=== PATIENT | male | born 1955 | race Hispanic/Latino ===

== ENCOUNTER → 2017-07-26 | Outpatient (CLI) | payer MEDICARE ==
[~2017-07-26] MED LIST: ALEN70TA47 PO; CYAN10007 IJ; DIPH50CA4 PO; ERGO500014 PO; FOLI1TAB15 PO; HYDR-4060 PO; HYDR200T4 PO; LISI-613 PO; METH2.5T6 PO; PRED5TAB PO; ROSU40TA28 PO; SIMV40TA59 PO; SULF500T8 PO; TOFA11TA PO; TOFA5TAB PO; vitamin b12 IM
== END | disposition home or self-care (01) ==
LOC: OIH 16:30
PROVIDERS: ATTEND Internal Medicine
DX: I10 Essential (primary) hypertension (principal)
CPT/HCPCS: 71046

== ENCOUNTER 2017-08-03 10:10 | Inpatient (IN) | payer MEDICARE ==
[~2017-08-03] VITALS: Ht 165.1 cm; Wt 105.4 kg
[~2017-08-03 10:10] MED LIST changes: -PRED5TAB PO
[2017-08-03] MEDS ORDERED: LIDOCAINE HCL-MPF 1% 2ML VIAL IJ PRN (10:45)
[2017-08-03] MEDS ORDERED: POTASSIUM CHLORIDE 20 MEQ ERTAB PO PRN (10:45)
[2017-08-03] MEDS ORDERED: ONDANSETRON HCL 4 MG/2 ML VIAL IVP PRN (10:45)
[2017-08-03] MEDS ORDERED: DEXTROSE 50%-WATER 50 ML DISP.SYRIN IV PRN (10:45)
[2017-08-03] MEDS ORDERED: SODIUM CHLORIDE 0.9% 10 ML VIAL IVP SCH (10:45)
[2017-08-03] MEDS ORDERED: GLUCAGON 1MG KIT 1 MG ML IM PRN (10:45)
[2017-08-03] MEDS ORDERED: POTASSIUM CHLORIDE 20MEQ/100ML 100 ML IV PRN (10:45)
[2017-08-03] MEDS ORDERED: IPRATROPIUM/ALBUTEROL SULFATE 3 ML SOLUTION IH PRN (10:45)
[2017-08-03] MEDS ORDERED: ACETAMINOPHEN 325 MG TAB PO PRN (10:45)
[2017-08-03] MEDS ORDERED: LACTULOSE 20 GM/30 ML UDCUP PO PRN (10:45)
[2017-08-03] MEDS ORDERED: MAG HYDROX/AL HYDROX/SIMETH ES 30 ML SUSP UDCUP PO PRN (10:45)
[2017-08-03] MEDS ORDERED: DIPHENHYDRAMINE HCL 25 MG CAPSULE PO PRN (10:45)
[2017-08-03] MEDS ORDERED: POTASSIUM CHLORIDE 10% ELIXIR 20 MEQ/15 ML UDCUP PO PRN (10:45)
[2017-08-03] MEDS ORDERED: CLONIDINE HCL 0.1 MG TABLET PO PRN (10:45)
[2017-08-03 10:50] LABS: HEMATOCRIT 40.6 % (42-54); MEAN CORPUSCULAR HEMOGLOBIN 31.3 pg (27.0-33.0); MEAN CORPUSCULAR HGB CONC 33.3 g/dL (32.0-36.0); MEAN CORPUSCULAR VOLUME 94.1 fL (79-99); NUCLEATED RED BLOOD CELLS 0.1 % (0.0-0.19); PLATELET COUNT (AUTO) 226 K/uL (130-400); RED BLOOD CELL COUNT(AUTO) 4.32 MIL/uL (4.50-6.20); RED CELL DISTRIBUTION WIDTH 16.2 % (11.0-15.5); WHITE BLOOD COUNT (AUTO) 11.5 K/uL (4.8-10.8)
[2017-08-03 11:00] VITALS: BP 102/60
[2017-08-03 11:10] LABS: ALBUMIN 3.4 g/dL (3.5-5.0); BILIRUBIN,TOTAL 0.3 mg/dL (0.2-1.0); CREATININE 0.8 mg/dL (0.5-1.5); POTASSIUM 4.2 mmol/L (3.5-5.1); TOTAL PROTEIN, SERUM 6.5 g/dL (6.0-8.3)
[2017-08-03] MEDS: IPRATROPIUM/ALBUTEROL SULFATE 3 ML SOLUTION IH SCH ×3 (11:11→23:35)
[2017-08-03] MEDS: INSULIN R PO SSI SQ SCH ×3 (11:30→20:47)
[2017-08-03 12:08] LABS: ERYTHROCYTE SEDIMENTATION RATE 5 MM/HR (0-15)
[2017-08-03] MEDS: AZITHROMYCIN 500MG+NS 250ML 250 ML IV SCH (12:09)
[2017-08-03] MEDS: CEFTRIAXONE SODIUM 1 GM IVP SCH (12:09)
[2017-08-03] MEDS: METHYLPREDNISOLONE SOD SUCC 125MG/2ML VIAL IVP SCH ×2 (12:09→17:47)
[2017-08-03 16:19] VITALS: BP 126/70
[2017-08-03 19:37] VITALS: BP 119/65
[2017-08-03] MEDS: FAMOTIDINE 20MG TAB 20 MG TAB PO SCH (20:43)
[2017-08-03 23:18] VITALS: BP 126/64
[2017-08-03 23:33] VITALS: BP 152/69
[2017-08-04] MEDS: ZOLPIDEM TARTRATE 5 MG TAB PO PRN ×2 (00:10→20:53)
[2017-08-04] MEDS: METHYLPREDNISOLONE SOD SUCC 125MG/2ML VIAL IVP SCH ×4 (00:10→17:45)
[2017-08-04 03:37] VITALS: BP 123/70
[2017-08-04 04:17] LABS: HEMATOCRIT 38.7 % (42-54); MEAN CORPUSCULAR HEMOGLOBIN 32.1 pg (27.0-33.0); MEAN CORPUSCULAR VOLUME 94.3 fL (79-99); PLATELET COUNT (AUTO) 243 K/uL (130-400); RED CELL DISTRIBUTION WIDTH 16.1 % (11.0-15.5); WHITE BLOOD COUNT (AUTO) 13.6 K/uL (4.8-10.8)
[2017-08-04 04:40] LABS: ALBUMIN 3.3 g/dL (3.5-5.0); BILIRUBIN,TOTAL 0.2 mg/dL (0.2-1.0); CREATININE 1.1 mg/dL (0.5-1.5); POTASSIUM 4.4 mmol/L (3.5-5.1); TOTAL PROTEIN, SERUM 6.2 g/dL (6.0-8.3)
[2017-08-04] MEDS: IPRATROPIUM/ALBUTEROL SULFATE 3 ML SOLUTION IH SCH ×4 (06:13→23:31)
[2017-08-04] MEDS: INSULIN R PO SSI SQ SCH ×4 (06:35→20:58)
[2017-08-04 07:00] VITALS: BP 115/53
[2017-08-04] MEDS: ENOXAPARIN SODIUM 40 MG/0.4 ML SYRINGE SQ SCH (08:16)
[2017-08-04] MEDS: FAMOTIDINE 20MG TAB 20 MG TAB PO SCH ×2 (08:16→20:53)
[2017-08-04] MEDS: GUAIFENESIN-DM 200/20 MG 10 ML PO PRN ×2 (08:16→17:50)
[2017-08-04] MEDS: CEFTRIAXONE SODIUM 1 GM IVP SCH (08:16)
[2017-08-04] MEDS: AZITHROMYCIN 500MG+NS 250ML 250 ML IV SCH (08:16)
[2017-08-04 11:00] VITALS: BP 116/69
[2017-08-04] MEDS ORDERED: PRED5TAB PO (12:43)
[2017-08-04 16:00] VITALS: BP 133/74
[2017-08-04 19:11] VITALS: BP 121/63
[2017-08-04 23:27] VITALS: BP 133/81
[2017-08-05 03:20] VITALS: BP 113/57
[2017-08-05] MEDS: INSULIN R PO SSI SQ SCH ×4 (06:35→21:05)
[2017-08-05] MEDS: METHYLPREDNISOLONE SOD SUCC 125MG/2ML VIAL IVP SCH ×2 (06:35)
[2017-08-05] MEDS: IPRATROPIUM/ALBUTEROL SULFATE 3 ML SOLUTION IH SCH ×3 (06:50→18:57)
[2017-08-05 07:51] VITALS: BP 125/71
[2017-08-05] MEDS: FAMOTIDINE 20MG TAB 20 MG TAB PO SCH ×2 (08:32→21:03)
[2017-08-05] MEDS: CEFTRIAXONE SODIUM 1 GM IVP SCH (08:33)
[2017-08-05] MEDS: ENOXAPARIN SODIUM 40 MG/0.4 ML SYRINGE SQ SCH (08:33)
[2017-08-05] MEDS: AZITHROMYCIN 500MG+NS 250ML 250 ML IV SCH (08:34)
[2017-08-05 11:49] VITALS: BP 128/70
[2017-08-05 16:00] VITALS: BP 142/73
[2017-08-05] MEDS ORDERED: METHYLPREDNISOLONE SOD SUCC 125MG/2ML VIAL IVP SCH (18:00)
[2017-08-05 19:11] VITALS: BP 139/79
[2017-08-05] MEDS: ZOLPIDEM TARTRATE 5 MG TAB PO PRN (21:03)
[2017-08-05 23:24] VITALS: BP 119/78
[2017-08-06] MEDS: IPRATROPIUM/ALBUTEROL SULFATE 3 ML SOLUTION IH SCH ×5 (01:21→23:33)
[2017-08-06 03:28] VITALS: BP 109/61
[2017-08-06 06:39] VITALS: BP 108/70
[2017-08-06] MEDS: INSULIN R PO SSI SQ SCH ×4 (08:20→23:40)
[2017-08-06] MEDS: AZITHROMYCIN 500MG+NS 250ML 250 ML IV SCH (08:26)
[2017-08-06] MEDS: FAMOTIDINE 20MG TAB 20 MG TAB PO SCH ×2 (08:27→23:42)
[2017-08-06] MEDS: CEFTRIAXONE SODIUM 1 GM IVP SCH (08:27)
[2017-08-06] MEDS: METHYLPREDNISOLONE SOD SUCC 40MG/ML 1ML IVP SCH ×2 (08:28→23:42)
[2017-08-06] MEDS: ENOXAPARIN SODIUM 40 MG/0.4 ML SYRINGE SQ SCH (08:29)
[2017-08-06 12:00] VITALS: BP 120/71
[2017-08-06 16:00] VITALS: BP 130/69
[2017-08-06 20:00] VITALS: BP 143/71
[2017-08-06] MEDS: ZOLPIDEM TARTRATE 5 MG TAB PO PRN (23:43)
[2017-08-07] VITALS: BP 131/80
[2017-08-07 04:00] VITALS: BP 128/70
[2017-08-07] MEDS: IPRATROPIUM/ALBUTEROL SULFATE 3 ML SOLUTION IH SCH (06:30)
[2017-08-07] MEDS: INSULIN R PO SSI SQ SCH (06:58)
[2017-08-07 07:47] VITALS: BP 141/83
[2017-08-07] MEDS: CEFTRIAXONE SODIUM 1 GM IVP SCH (10:11)
[2017-08-07] MEDS: FAMOTIDINE 20MG TAB 20 MG TAB PO SCH (10:11)
[2017-08-07] MEDS: AZITHROMYCIN 500MG+NS 250ML 250 ML IV SCH (10:12)
[2017-08-07] MEDS: METHYLPREDNISOLONE SOD SUCC 40MG/ML 1ML IVP SCH (10:12)
[2017-08-07] MEDS: ENOXAPARIN SODIUM 40 MG/0.4 ML SYRINGE SQ SCH (10:13)
== END 2017-08-07 11:09 | disposition home or self-care (01) | DRG 202 ==
LOC: EDH 10:10 → 3CH 10:11
PROVIDERS: ADMIT Internal Medicine; ATTEND Internal Medicine
DX: J20.9 Acute bronchitis, unspecified (principal); R65.11 Systemic inflammatory response syndrome (SIRS) of non-infectious origin with acute organ dysfunction; J45.41 Moderate persistent asthma with (acute) exacerbation; E44.1 Mild protein-calorie malnutrition; I10 Essential (primary) hypertension; M06.9 Rheumatoid arthritis, unspecified; Z68.38 Body mass index [BMI] 38.0-38.9, adult; M81.0 Age-related osteoporosis without current pathological fracture; M19.90 Unspecified osteoarthritis, unspecified site; G89.29 Other chronic pain; E78.5 Hyperlipidemia, unspecified; Z28.21 Immunization not carried out because of patient refusal
CPT/HCPCS: 36415; 71046; 80053; 82948; 85027; 85651; 93005; 94640; 94664; A4218; J0456; J0696; J1650; J1815; J2920; J2930

== ENCOUNTER → 2017-08-14 | Outpatient (CLI) | payer MEDICARE ==
[~2017-08-14] MED LIST changes: -ALEN70TA47 PO; +PRED5TAB PO; -SIMV40TA59 PO; -TOFA11TA PO; -vitamin b12 IM
== END ==
LOC: OIH 10:58
PROVIDERS: ATTEND Internal Medicine
DX: M54.16 Radiculopathy, lumbar region (principal); I73.9 Peripheral vascular disease, unspecified
CPT/HCPCS: 72100

== ENCOUNTER → 2017-09-18 | Outpatient (CLI) | payer MEDICARE | END | disposition home or self-care (01) | LOC: RAH 08:30 | PROVIDERS: ATTEND Internal Medicine | DX: M47.26 Other spondylosis with radiculopathy, lumbar region (principal); M48.061 Spinal stenosis, lumbar region without neurogenic claudication; I12.9 Hypertensive chronic kidney disease with stage 1 through stage 4 chronic kidney disease, or unspecified chronic kidney disease; N18.9 Chronic kidney disease, unspecified; J44.9 Chronic obstructive pulmonary disease, unspecified; M81.0 Age-related osteoporosis without current pathological fracture; E78.5 Hyperlipidemia, unspecified | CPT/HCPCS: 72148 ==

== ENCOUNTER 2018-03-26 19:43 | Emergency (ER) | payer MEDICARE ==
[~2018-03-26 19:43] MED LIST changes: +ROSU40TA20 PO; -ROSU40TA28 PO
[2018-03-26] MEDS ORDERED: SODIUM CHLORIDE 0.9% 500ML 500 ML IV ONE ×2 (20:34→22:08)
[2018-03-26 20:41] LABS: BASOPHILS % (AUTO) 0.4 % (0.0-5.0); EOSINOPHILS % (AUTO) 0.8 % (0.0-8.0); HEMATOCRIT 37.4 % (42-54); LYMPHOCYTES % (AUTO) 20.1 % (21.0-51.0); MEAN CORPUSCULAR HEMOGLOBIN 32.1 pg (27.0-33.0); MEAN CORPUSCULAR HGB CONC 32.9 g/dL (32.0-36.0); MEAN CORPUSCULAR VOLUME 97.5 fL (79-99); NEUTROPHILS % (AUTO) 69.7 % (40.0-77.0); PLATELET COUNT (AUTO) 215 K/uL (130-400); RED BLOOD CELL COUNT(AUTO) 3.83 MIL/uL (4.50-6.20); WHITE BLOOD COUNT (AUTO) 9.8 K/uL (4.8-10.8)
[2018-03-26 20:48] LABS: CREATININE 1.6 mg/dL (0.5-1.5); INR 0.97 (0.85-1.15); PARTIAL THROMBOPLASTIN TIME 25.4 SEC (26.3-35.5); POTASSIUM 3.8 mmol/L (3.5-5.1); PROTHROMBIN TIME 10.2 SEC (9.6-11.6)
[2018-03-26 20:52] LABS: ALBUMIN 3.7 g/dL (3.5-5.0); BILIRUBIN,TOTAL 0.2 mg/dL (0.2-1.0); TOTAL PROTEIN, SERUM 6.5 g/dL (6.0-8.3)
[2018-03-26 21:05] LABS: B-TYPE NATRIURETIC PEPTIDE 14 pg/mL (0-100)
[2018-03-26 22:25] LABS: APPEARANCE,URINE Cloudy (CLEAR); BILIRUBIN,URINE Small (NEGATIVE); COLOR,URINE Dark Yellow (YELLOW); GLUCOSE, URINE (UA) Negative (NEGATIVE); KETONES,URINE Trace mg/dL (NEGATIVE); LEUKOCYTE ESTERASE ,URINE Trace (NEGATIVE); NITRATE,URINE Negative (NEGATIVE); OCCULT BLOOD,URINE Negative (NEGATIVE); PROTEIN,URINE POS 1+ (NEGATIVE)
[2018-03-26 22:45] LABS: BACTERIA,URINE Few /HPF (None Seen); MUCUS,URINE Many LPF (None Seen); RBC,URINE None Seen /HPF (0-1); SQUAMOUS EPITHELIAL CELL,UR Many /HPF (0-2)
[2018-03-26 22:46] LABS: HYALINE CASTS, URINE 26-50 /LPF (0-1 /LPF)
== END 2018-03-26 22:47 | disposition home or self-care (01) ==
LOC: EDH 19:43
DX: E86.9 Volume depletion, unspecified (principal); T50.995A Adverse effect of other drugs, medicaments and biological substances, initial encounter; R42 Dizziness and giddiness; J44.9 Chronic obstructive pulmonary disease, unspecified; E78.5 Hyperlipidemia, unspecified; I10 Essential (primary) hypertension; M06.80 Other specified rheumatoid arthritis, unspecified site; Y92.098 Other place in other non-institutional residence as the place of occurrence of the external cause
CPT/HCPCS: 36415; 71045; 80053; 81001; 82550; 83605; 83690; 83880; 84484; 85025; 85610; 85730; 93005; 96360; 96361; 99285; J7040 ×2

== ENCOUNTER → 2018-04-17 | Outpatient (CLI) | payer MEDICARE | END | disposition home or self-care (01) | LOC: OIH 14:26 | PROVIDERS: ATTEND Internal Medicine | DX: R91.8 Other nonspecific abnormal finding of lung field (principal); M47.895 Other spondylosis, thoracolumbar region; J18.0 Bronchopneumonia, unspecified organism; Z90.49 Acquired absence of other specified parts of digestive tract | CPT/HCPCS: 71046 ==

== ENCOUNTER → 2018-06-24 | Outpatient (CLI) | payer MEDICARE | END | disposition home or self-care (01) | LOC: OIH 11:10 | PROVIDERS: ATTEND Internal Medicine | DX: J18.0 Bronchopneumonia, unspecified organism (principal) | CPT/HCPCS: 71046 ==

== ENCOUNTER → 2018-09-04 | Outpatient (CLI) | payer MEDICARE ==
[~2018-09-04] MED LIST changes: +ALBU8.5H8 IH; +ALEN70TA10 PO; -DIPH50CA4 PO; +LEVO500T2 PO; +PRED20TA3 PO; +TOFA11TA PO; -TOFA5TAB PO
== END | disposition home or self-care (01) ==
LOC: OIH 16:25
PROVIDERS: ATTEND Internal Medicine
DX: J45.41 Moderate persistent asthma with (acute) exacerbation (principal)
CPT/HCPCS: 71046

== ENCOUNTER → 2019-12-29 | Outpatient (CLI) | payer OTHER | END | disposition home or self-care (01) | LOC: OIH 15:04 | PROVIDERS: ATTEND Internal Medicine | DX: M70.62 Trochanteric bursitis, left hip (principal) ==

== ENCOUNTER 2021-01-29 13:32 | Emergency (ER) | payer OTHER ==
[~2021-01-29] VITALS: Ht 165.1 cm; Wt 106.6 kg
[~2021-01-29 13:32] MED LIST changes: -ALEN70TA10 PO; +ALEN70TA80 PO; -HYDR200T4 PO; -LEVO500T2 PO; -LISI-613 PO; +LISI20TA24 PO; -PRED20TA3 PO; -ROSU40TA20 PO; +ROSU40TA21 PO
[2021-01-29 13:34] VITALS: BP 98/62
[2021-01-29 14:20] LABS: BASOPHILS % (AUTO) 0.4 % (0.0-5.0); EOSINOPHILS % (AUTO) 6.1 % (0.0-8.0); HEMATOCRIT 36.8 % (42-54); LYMPHOCYTES % (AUTO) 18.5 % (21.0-51.0); MEAN CORPUSCULAR HEMOGLOBIN 31.4 pg (27.0-33.0); MEAN CORPUSCULAR HGB CONC 32.3 g/dL (32.0-36.0); MEAN CORPUSCULAR VOLUME 97.1 fL (79-99); MONOCYTES % (AUTO) 11.4 % (3.0-13.0); NEUTROPHILS % (AUTO) 63.2 % (40.0-77.0); PLATELET COUNT (AUTO) 274 K/uL (130-400); RED BLOOD CELL COUNT(AUTO) 3.79 MIL/uL (4.50-6.20); RED CELL DISTRIBUTION WIDTH 15.7 % (11.0-15.5); WHITE BLOOD COUNT (AUTO) 9.5 K/uL (4.8-10.8)
[2021-01-29] MEDS ORDERED: HYDROXYZINE 25 MG TABLET PO ONE (14:30)
[2021-01-29] MEDS ORDERED: SOLU-MEDROL 125MG VIAL IVP ONE (14:30)
[2021-01-29] MEDS ORDERED: LORATADINE 10 MG TABLET PO SCH (14:30)
[2021-01-29 14:41] LABS: CREATININE 1.8 mg/dL (0.5-1.5); POTASSIUM 4.9 mmol/L (3.5-5.1)
[2021-01-29 14:47] LABS: ALBUMIN 3.3 g/dL (3.5-5.0); BILIRUBIN,TOTAL 0.5 mg/dL (0.2-1.0); TOTAL PROTEIN, SERUM 6.3 g/dL (6.0-8.3)
[2021-01-29] MEDS ORDERED: HYD25 PO (16:24)
== END 2021-01-29 17:50 | disposition home or self-care (01) ==
LOC: EDH 13:32
DX: T78.49XA Other allergy, initial encounter (principal); K59.00 Constipation, unspecified; I10 Essential (primary) hypertension; J44.9 Chronic obstructive pulmonary disease, unspecified; M19.90 Unspecified osteoarthritis, unspecified site; M79.7 Fibromyalgia; Z79.52 Long term (current) use of systemic steroids; Z79.899 Other long term (current) drug therapy; X58.XXXA Exposure to other specified factors, initial encounter
CPT/HCPCS: 36415; 74018; 80053; 82150; 83690; 85025; 96374; 99283; J2930

== ENCOUNTER 2021-11-30 09:57 | Inpatient (IN) | payer OTHER ==
[~2021-11-30] VITALS: Ht 165.1 cm; Wt 101.4 kg
[~2021-11-30 09:57] MED LIST changes: -ALBU8.5H8 IH; +CYCL-309 PO; +GABA-529 PO; +HYDR200T82 PO; +PANT40TA54 PO; -PRED5TAB PO; -SULF500T8 PO; -TOFA11TA PO
[2021-11-30] MEDS ORDERED: MAG/ALUM/SIMETH 30 ML UDCUP PO PRN (10:30)
[2021-11-30] MEDS ORDERED: NITROGLYCERIN 0.4 MG SL TAB SL PRN (10:30)
[2021-11-30] MEDS ORDERED: DIPHENHYDRAMINE HCL 25 MG CAPSULE PO PRN (10:30)
[2021-11-30] MEDS ORDERED: CLONIDINE HCL 0.1 MG TABLET PO PRN (10:30)
[2021-11-30] MEDS: HYDROMORPHONE 0.5 MG SYG (0.5MG/0.5ML) IVP PRN ×3 (10:57→20:23)
[2021-11-30 11:09] LABS: BASOPHILS % (AUTO) 0.4 % (0.0-5.0); EOSINOPHILS % (AUTO) 1.4 % (0.0-8.0); HEMATOCRIT 33.8 % (42-54); MEAN CORPUSCULAR HEMOGLOBIN 31.2 pg (27.0-33.0); MEAN CORPUSCULAR HGB CONC 31.1 g/dL (32.0-36.0); MEAN CORPUSCULAR VOLUME 100.3 fL (79-99); MONOCYTES % (AUTO) 9.2 % (3.0-13.0); NEUTROPHILS % (AUTO) 73.3 % (40.0-77.0); PLATELET COUNT (AUTO) 294 K/uL (130-400); RED BLOOD CELL COUNT(AUTO) 3.37 MIL/uL (4.50-6.20); RED CELL DISTRIBUTION WIDTH 17.5 % (11.0-15.5); WHITE BLOOD COUNT (AUTO) 11.7 K/uL (4.8-10.8)
[2021-11-30 11:16] LABS: CREATININE 1.4 mg/dL (0.5-1.5); POTASSIUM 5.3 mmol/L (3.5-5.1)
[2021-11-30 11:21] LABS: ALBUMIN 3.1 g/dL (3.5-5.0); BILIRUBIN,TOTAL 0.4 mg/dL (0.2-1.0); TOTAL PROTEIN, SERUM 6.7 g/dL (6.0-8.3)
[2021-11-30 11:33] LABS: B-TYPE NATRIURETIC PEPTIDE 11 pg/mL (0-100)
[2021-11-30] MEDS: 0.9%NACL 1000ML 1,000 ML IV SCH (18:20)
[2021-11-30 18:45] VITALS: BP 112/62
[2021-11-30 19:45] VITALS: BP 109/60
[2021-11-30] MEDS: ATORVASTATIN 40 MG TABLET PO SCH (20:22)
[2021-11-30 23:01] VITALS: BP 102/56
[2021-12-01] VITALS (23 sets, daily range): BP systolic 103–140; BP diastolic 57–83
[2021-12-01] MEDS: HYDROMORPHONE 0.5 MG SYG (0.5MG/0.5ML) IVP PRN ×4 (01:09→22:33)
[2021-12-01 04:55] LABS: INR 1.07 (0.85-1.15); PROTHROMBIN TIME 11.6 SEC (9.6-11.6)
[2021-12-01 05:25] LABS: MEAN CORPUSCULAR HEMOGLOBIN 31.1 pg (27.0-33.0); MEAN CORPUSCULAR HGB CONC 31.3 g/dL (32.0-36.0); MEAN CORPUSCULAR VOLUME 99.4 fL (79-99); RED BLOOD CELL COUNT(AUTO) 3.12 MIL/uL (4.50-6.20); RED CELL DISTRIBUTION WIDTH 17.3 % (11.0-15.5); WHITE BLOOD COUNT (AUTO) 12.4 K/uL (4.8-10.8)
[2021-12-01 05:28] LABS: POTASSIUM 5.1 mmol/L (3.5-5.1)
[2021-12-01] MEDS: 0.9%NACL 1000ML 1,000 ML IV SCH ×2 (06:23→20:33)
[2021-12-01] MEDS: ASPIRIN 81MG CHEW TAB PO SCH (08:35)
[2021-12-01] MEDS: CLOPIDOGREL 75MG TAB PO SCH (08:36)
[2021-12-01] MEDS ORDERED: AMIT10TA7 PO (10:34)
[2021-12-01] MEDS ORDERED: HYDR2TAB8 PO (10:34)
[2021-12-01] MEDS ORDERED: NITR0.4T50 SL (10:34)
[2021-12-01] MEDS ORDERED: AEC81 PO (10:34)
[2021-12-01] MEDS ORDERED: ALBU18HF7 IH (10:34)
[2021-12-01] MEDS ORDERED: CLOP75TA14 PO (10:34)
[2021-12-01] MEDS ORDERED: RIVA2.5T PO (10:34)
[2021-12-01] MEDS ORDERED: DEXMEDETOMIDINE 400MCG/NS100ML IV ONE (11:19)
[2021-12-01] MEDS ORDERED: HEPARIN 10,000 UNIT/10ML (1,000 UNIT/ML) VIAL ONE (12:46)
[2021-12-01] MEDS ORDERED: NITROGLYCERIN 50MG VIAL ONE (12:46)
[2021-12-01] MEDS ORDERED: LIDOCAINE HCL 400MG/20ML VIAL ONE (12:46)
[2021-12-01] MEDS ORDERED: IODIXANOL 320 MG/ML 100 ML VIAL ONE (12:47)
[2021-12-01] MEDS ORDERED: MIDAZOLAM HCL 1 MG/ML 2ML VIAL ONE ×2 (13:19→14:49)
[2021-12-01] MEDS ORDERED: FENTANYL CITRATE PF 50 MCG/1 ML 2ML VIAL ONE ×2 (13:19→14:53)
[2021-12-01] MEDS ORDERED: HEPARIN 25,000 UNITS/250ML D5W 250 ML IV ONE (15:25)
[2021-12-01] MEDS ORDERED: 0.9%NACL 1000ML 1,000 ML IV SCH (16:00)
[2021-12-01] MEDS ORDERED: PHARMACY COMMUNICATION MISC SCH (16:30)
[2021-12-01] MEDS ORDERED: HEPARIN 25,000 UNITS/250ML D5W 250 ML IV SCH (16:30)
[2021-12-01] MEDS: ATORVASTATIN 40 MG TABLET PO SCH (20:33)
[2021-12-01 22:56] LABS: INR 1.09 (0.85-1.15); PROTHROMBIN TIME 11.8 SEC (9.6-11.6)
[2021-12-01 23:01] LABS: PARTIAL THROMBOPLASTIN TIME 93.9 SEC (26.3-35.5)
[2021-12-02] VITALS (45 sets, daily range): BP systolic 99–131; BP diastolic 45–76
[2021-12-02] MEDS: HYDROMORPHONE 0.5 MG SYG (0.5MG/0.5ML) IVP PRN ×5 (01:55→20:54)
[2021-12-02 03:51] LABS: HEMATOCRIT 31.8 % (42-54); MEAN CORPUSCULAR HEMOGLOBIN 30.9 pg (27.0-33.0); MEAN CORPUSCULAR HGB CONC 31.8 g/dL (32.0-36.0); MEAN CORPUSCULAR VOLUME 97.2 fL (79-99); RED BLOOD CELL COUNT(AUTO) 3.27 MIL/uL (4.50-6.20); RED CELL DISTRIBUTION WIDTH 17.2 % (11.0-15.5); WHITE BLOOD COUNT (AUTO) 14.1 K/uL (4.8-10.8)
[2021-12-02 03:58] LABS: CREATININE 0.9 mg/dL (0.5-1.5); POTASSIUM 4.6 mmol/L (3.5-5.1)
[2021-12-02] MEDS ORDERED: NITROGLYCERIN 50MG VIAL ONE (07:10)
[2021-12-02] MEDS ORDERED: HEPARIN 10,000 UNIT/10ML (1,000 UNIT/ML) VIAL ONE (07:10)
[2021-12-02] MEDS ORDERED: IODIXANOL 320 MG/ML 100 ML VIAL ONE (07:10)
[2021-12-02] MEDS ORDERED: MIDAZOLAM HCL 1 MG/ML 2ML VIAL ONE (07:11)
[2021-12-02] MEDS ORDERED: FENTANYL CITRATE PF 50 MCG/1 ML 2ML VIAL ONE (07:11)
[2021-12-02] MEDS ORDERED: LIDOCAINE HCL 1% MDV 50ML VIAL ONE (07:12)
[2021-12-02] MEDS: CLOPIDOGREL 75MG TAB PO SCH ×2 (07:28→09:47)
[2021-12-02] MEDS: ASPIRIN 81MG CHEW TAB PO SCH ×2 (07:28→09:48)
[2021-12-02] MEDS ORDERED: LABETALOL 20MG SYG IV ONE (08:26)
[2021-12-02] MEDS ORDERED: 0.9%NACL 1000ML 1,000 ML IV SCH (08:30)
[2021-12-02] MEDS: ZOLPIDEM TARTRATE 5 MG TAB PO PRN ×2 (20:50→22:14)
[2021-12-02] MEDS: ATORVASTATIN 40 MG TABLET PO SCH (20:50)
[2021-12-03] VITALS (11 sets, daily range): BP systolic 100–119; BP diastolic 39–70
[2021-12-03] MEDS: CLOPIDOGREL 75MG TAB PO SCH ×2 (08:04→08:05)
[2021-12-03] MEDS: ASPIRIN 81MG CHEW TAB PO SCH ×2 (08:04→08:05)
[2021-12-03] MEDS: HYDROMORPHONE 0.5 MG SYG (0.5MG/0.5ML) IVP PRN ×4 (08:04→22:19)
[2021-12-03] MEDS ORDERED: HYDROCODONE/ACETAMINOPHEN 7.5/325 MG TAB PO PRN (11:00)
[2021-12-03] MEDS: ATORVASTATIN 40 MG TABLET PO SCH (22:19)
[2021-12-03] MEDS: ZOLPIDEM TARTRATE 5 MG TAB PO PRN (22:19)
[2021-12-04] VITALS (28 sets, daily range): BP systolic 103–146; BP diastolic 59–79
[2021-12-04] MEDS: HYDROMORPHONE 0.5 MG SYG (0.5MG/0.5ML) IVP PRN ×2 (01:26→07:27)
[2021-12-04] MEDS: CLOPIDOGREL 75MG TAB PO SCH ×2 (07:30→07:31)
[2021-12-04] MEDS: ASPIRIN 81MG CHEW TAB PO SCH ×2 (07:30)
[2021-12-04] MEDS ORDERED: DEXAMETHASONE SOD PHOSPHATE 10MG/ML 1ML VIAL ONE (08:34)
[2021-12-04] MEDS ORDERED: LIDOCAINE PF 100MG/5ML (2%) SYRINGE 5ML ONE (08:34)
[2021-12-04] MEDS ORDERED: SUCCINYLCHOLINE CHLORIDE 20 MG/ML 10 ML VIAL ONE (08:34)
[2021-12-04] MEDS ORDERED: MIDAZOLAM HCL 1 MG/ML 2ML VIAL ONE (08:36)
[2021-12-04] MEDS ORDERED: GLYCOPYRROLATE 1 MG/5 ML SYRINGE ONE (08:36)
[2021-12-04] MEDS ORDERED: NEOSTIGMINE 5MG/5ML SYR IV ONE (08:36)
[2021-12-04] MEDS ORDERED: ONDANSETRON 4MG INJ ONE (08:36)
[2021-12-04] MEDS ORDERED: PROPOFOL 10 MG/ML 20ML VIAL IV ONE (08:36)
[2021-12-04] MEDS ORDERED: FENTANYL CITRATE PF 50 MCG/1 ML 2ML VIAL ONE (08:37)
[2021-12-04] MEDS ORDERED: ROCURONIUM 10MG/1ML SYR 10 MG/ML ML ONE (08:37)
[2021-12-04] MEDS ORDERED: KETAMINE HCL 100 MG/ML 5ML VIAL IJ ONE (08:41)
[2021-12-04 08:42] LABS: HEMATOCRIT 29.2 % (42-54); MEAN CORPUSCULAR HEMOGLOBIN 30.7 pg (27.0-33.0); MEAN CORPUSCULAR HGB CONC 31.8 g/dL (32.0-36.0); MEAN CORPUSCULAR VOLUME 96.4 fL (79-99); RED BLOOD CELL COUNT(AUTO) 3.03 MIL/uL (4.50-6.20); WHITE BLOOD COUNT (AUTO) 14.6 K/uL (4.8-10.8)
[2021-12-04] MEDS ORDERED: ROPIVACAINE 0.5% 5MG/ML 30ML IJ ONE (08:42)
[2021-12-04] MEDS ORDERED: PHENYLEPHRINE HCL 10 MG/ML 1ML VIAL IV ONE (08:43)
[2021-12-04] MEDS ORDERED: ALBUMIN (HUMAN) 5% 250 ML IV ONE (08:48)
[2021-12-04 08:52] LABS: INR 1.07 (0.85-1.15); PROTHROMBIN TIME 11.6 SEC (9.6-11.6)
[2021-12-04 08:53] LABS: PARTIAL THROMBOPLASTIN TIME 26.8 SEC (26.3-35.5)
[2021-12-04] MEDS: CEFAZOLIN SODIUM 1 GM VIAL ONE ×2 (09:09→09:40)
[2021-12-04] MEDS ORDERED: MEPERIDINE-PF 25 MG/ML SYG ONE (10:18)
[2021-12-04] MEDS: ATORVASTATIN 40 MG TABLET PO SCH (21:35)
[2021-12-04] MEDS: ZOLPIDEM TARTRATE 5 MG TAB PO PRN (23:33)
[2021-12-05] MEDS: CEFAZOLIN SODIUM 1 GM VIAL IVP SCH ×2 (01:02→07:31)
[2021-12-05] MEDS: HYDROCODONE/ACETAMINOPHEN 7.5/325 MG TAB PO PRN ×4 (01:07→20:55)
[2021-12-05 03:23] VITALS: BP 116/58
[2021-12-05] MEDS: HYDROMORPHONE 0.5 MG SYG (0.5MG/0.5ML) IVP PRN ×5 (05:51→19:31)
[2021-12-05] MEDS: LACTULOSE 20 GM/30 ML UDCUP PO PRN ×2 (07:31→19:29)
[2021-12-05] MEDS: ASPIRIN 81MG CHEW TAB PO SCH (07:32)
[2021-12-05] MEDS: CLOPIDOGREL 75MG TAB PO SCH (07:33)
[2021-12-05 08:00] VITALS: BP 123/71
[2021-12-05 12:24] VITALS: BP 141/69
[2021-12-05 15:53] VITALS: BP 124/76
[2021-12-05] MEDS ORDERED: GABAPENTIN 100 MG CAPSULE ONE (19:24)
[2021-12-05] MEDS: ATORVASTATIN 40 MG TABLET PO SCH (19:29)
[2021-12-05 19:50] VITALS: BP 130/78
[2021-12-05] MEDS ORDERED: GABAPENTIN 100 MG CAPSULE PO SCH (21:00)
[2021-12-05] MEDS: ZOLPIDEM TARTRATE 5 MG TAB PO PRN (22:25)
[2021-12-05] MEDS: KETOROLAC 30MG VIAL (30MG/ML) IVP PRN (22:25)
[2021-12-05 23:01] VITALS: BP 138/75
[2021-12-06 03:42] VITALS: BP 120/66
[2021-12-06 04:35] LABS: BASOPHILS % (AUTO) 0.4 % (0.0-5.0); EOSINOPHILS % (AUTO) 0.4 % (0.0-8.0); HEMATOCRIT 25.1 % (42-54); LYMPHOCYTES % (AUTO) 10.8 % (21.0-51.0); MEAN CORPUSCULAR HEMOGLOBIN 31.2 pg (27.0-33.0); MEAN CORPUSCULAR HGB CONC 31.5 g/dL (32.0-36.0); MEAN CORPUSCULAR VOLUME 99.2 fL (79-99); MONOCYTES % (AUTO) 10.2 % (3.0-13.0); NEUTROPHILS % (AUTO) 75.8 % (40.0-77.0); NUCLEATED RED BLOOD CELLS 0.2 % (0.0-0.19); PLATELET COUNT (AUTO) 322 K/uL (130-400); RED BLOOD CELL COUNT(AUTO) 2.53 MIL/uL (4.50-6.20); RED CELL DISTRIBUTION WIDTH 17.2 % (11.0-15.5); WHITE BLOOD COUNT (AUTO) 16.1 K/uL (4.8-10.8)
[2021-12-06 04:49] LABS: POTASSIUM 3.8 mmol/L (3.5-5.1)
[2021-12-06] MEDS: HYDROMORPHONE 0.5 MG SYG (0.5MG/0.5ML) IVP PRN ×3 (05:26→19:31)
[2021-12-06] MEDS: HYDROCODONE/ACETAMINOPHEN 7.5/325 MG TAB PO PRN ×4 (06:17→23:42)
[2021-12-06] MEDS: ASPIRIN 81MG CHEW TAB PO SCH (07:40)
[2021-12-06] MEDS: PANTOPRAZOLE 40 MG TAB DR PO SCH (07:40)
[2021-12-06] MEDS: CLOPIDOGREL 75MG TAB PO SCH (07:41)
[2021-12-06 08:00] VITALS: BP 102/68
[2021-12-06] MEDS: GABAPENTIN 100 MG CAPSULE PO SCH ×3 (09:00→19:30)
[2021-12-06 12:00] VITALS: BP 109/72
[2021-12-06 15:39] VITALS: BP 111/50
[2021-12-06] MEDS: LACTULOSE 20 GM/30 ML UDCUP PO PRN (17:35)
[2021-12-06] MEDS: KETOROLAC 30MG VIAL (30MG/ML) IVP PRN (18:37)
[2021-12-06] MEDS: ATORVASTATIN 40 MG TABLET PO SCH (19:30)
[2021-12-06 20:31] VITALS: BP 103/60
[2021-12-06] MEDS: ZOLPIDEM TARTRATE 5 MG TAB PO PRN (22:31)
[2021-12-07] VITALS: BP 118/66
[2021-12-07] MEDS: KETOROLAC 30MG VIAL (30MG/ML) IVP PRN (02:59)
[2021-12-07 04:31] VITALS: BP 118/62
[2021-12-07] MEDS: HYDROCODONE/ACETAMINOPHEN 7.5/325 MG TAB PO PRN ×2 (06:17→17:23)
[2021-12-07 08:39] VITALS: BP 99/46
[2021-12-07] MEDS: GABAPENTIN 100 MG CAPSULE PO SCH ×2 (09:05→13:59)
[2021-12-07] MEDS: CLOPIDOGREL 75MG TAB PO SCH (09:05)
[2021-12-07] MEDS: PANTOPRAZOLE 40 MG TAB DR PO SCH (09:05)
[2021-12-07] MEDS: ASPIRIN 81MG CHEW TAB PO SCH (09:05)
[2021-12-07] MEDS: HYDROMORPHONE 0.5 MG SYG (0.5MG/0.5ML) IVP PRN (09:17)
[2021-12-07 12:17] VITALS: BP 105/60
[2021-12-07] MEDS: LACTULOSE 20 GM/30 ML UDCUP PO PRN (15:51)
[2021-12-07 18:42] VITALS: BP 118/58
== END 2021-12-07 19:26 | DRG 271 ==
LOC: EDH 09:57 → EDHIP 09:58 → 2DH 19:43 → 2BH 12-01 16:53 → 4CH 12-03 11:07
PROVIDERS: ADMIT Internal Medicine; ATTEND Internal Medicine
PROC: 047T34Z Dilation of Right Peroneal Artery with Drug-eluting Intraluminal Device, Percutaneous Approach (ICD-10-PCS; principal; 2021-12-01)
PROC: 04CK3ZZ Extirpation of Matter from Right Femoral Artery, Percutaneous Approach (ICD-10-PCS; 2021-12-01)
PROC: 047M3ZZ Dilation of Right Popliteal Artery, Percutaneous Approach (ICD-10-PCS; 2021-12-01)
PROC: 3E03317 Introduction of Other Thrombolytic into Peripheral Vein, Percutaneous Approach (ICD-10-PCS; 2021-12-01)
PROC: 0Y6H0Z1 Detachment at Right Lower Leg, High, Open Approach (ICD-10-PCS; 2021-12-04)
DX: I73.9 Peripheral vascular disease, unspecified (principal); M87.9 Osteonecrosis, unspecified; L97.919 Non-pressure chronic ulcer of unspecified part of right lower leg with unspecified severity; I82.401 Acute embolism and thrombosis of unspecified deep veins of right lower extremity; I99.8 Other disorder of circulatory system; M06.9 Rheumatoid arthritis, unspecified; I10 Essential (primary) hypertension; J45.40 Moderate persistent asthma, uncomplicated; E78.5 Hyperlipidemia, unspecified; M19.90 Unspecified osteoarthritis, unspecified site; E66.01 Morbid (severe) obesity due to excess calories; Z68.37 Body mass index [BMI] 37.0-37.9, adult; D64.9 Anemia, unspecified
CPT/HCPCS: 36415; 37211; 37214; 37225; 37230; 37231; 75710; 75774; 80048; 80053; 82948; 83880; 85025; 85027; 85347; 85610; 85730; 86850; 86900; 86901; 87635; 94660; 97039; 99156; 99157; C1724; C1757; C1769; C1893; C1894; G0378; J0330; J0690; J1100; J1170; J1644; J1885; J2001; J2175; J2250; J2370; J2405; J2704; J2710; J2795; J3010; J3490; J7030; P9045; Q9967

== ENCOUNTER → 2022-10-10 | Outpatient (CLI) | payer OTHER ==
[~2022-10-10] MED LIST changes: +AEC81 PO; +ALBU18HF7 IH; +AMIT10TA7 PO; +CLOP-31 PO; -HYDR-4060 PO; +HYDR2TAB8 PO; +NITR0.4T50 SL; +RIVA2.5T PO
== END | disposition home or self-care (01) ==
LOC: SHCH 09:59
PROVIDERS: ATTEND Internal Medicine Cardiovascular Disease
DX: I70.202 Unspecified atherosclerosis of native arteries of extremities, left leg (principal); Z89.511 Acquired absence of right leg below knee; I87.2 Venous insufficiency (chronic) (peripheral)
CPT/HCPCS: 93925; 93970

== ENCOUNTER → 2023-09-05 | Outpatient (CLI) | payer OTHER | END | disposition home or self-care (01) | LOC: RAH 12:33 | PROVIDERS: ATTEND Internal Medicine | DX: N28.1 Cyst of kidney, acquired (principal); N20.0 Calculus of kidney; N40.0 Benign prostatic hyperplasia without lower urinary tract symptoms; R31.9 Hematuria, unspecified; K57.90 Diverticulosis of intestine, part unspecified, without perforation or abscess without bleeding; Z96.642 Presence of left artificial hip joint | CPT/HCPCS: 74176 ==

== ENCOUNTER → 2023-09-12 | Outpatient (CLI) | payer OTHER | END | disposition home or self-care (01) | LOC: SHCH 12:30 | PROVIDERS: ATTEND Internal Medicine Cardiovascular Disease | DX: I73.9 Peripheral vascular disease, unspecified (principal); I87.1 Compression of vein; I87.2 Venous insufficiency (chronic) (peripheral) | CPT/HCPCS: 93925; 93970 ==

== ENCOUNTER → 2024-08-01 | Outpatient (CLI) | payer OTHER ==
[~2024-08-01] MED LIST changes: -AEC81 PO; -ALBU18HF7 IH; -AMIT10TA7 PO; +AMIT25TA9 PO; -CLOP-31 PO; +CLOP75TA32 PO; -CYAN10007 IJ; +CYAN1000I IM; -CYCL-309 PO; -ERGO500014 PO; +FOLI1 PO; -FOLI1TAB15 PO; -GABA-529 PO; +HYDR-4068 PO; +HYDR200T75 PO; -HYDR200T82 PO; -HYDR2TAB8 PO; -LISI20TA24 PO; +LORA-192 PO; -NITR0.4T50 SL; -ROSU40TA21 PO; +ROSU40TA88 PO; +VITAD50000 PO; +ZOLP10TA2 PO
--- NOTE | 2024-08-01 14:11 | HMCIMG ---
Exam Type: THORACIC SPINE SERIES 3 views History: THORACIC BACK PAIN Comparison: none Findings: Spondylitic and degenerative changes of the dorsal spine are seen. There are degenerative changes of the apophyseal joints as well. The disc spaces are preserved. No fractures or dislocations are noted. No paraspinal soft tissue abnormalities are seen. Impression: 1. DEGENERATIVE CHANGES OF THE SPINE. NO ACUTE FRACTURES OR DISLOCATIONS NOTED AT THIS TIME.
--- NOTE | 2024-08-01 14:12 | HMCIMG ---
Lumbar spine 2 views: AP, lateral Clinical Information: LUMBAR BACK PAIN Comparison: None Findings: Exam of the lumbosacral spine demonstrates no evidence of fracture, subluxation, or significant degenerative change. There is straightening of the spine consistent with spasm. The disc spaces are intact. The facet joints are preserved without significant degenerative changes Status post posterior fusion L3-4. Bone mineralization is normal. Impression: Lumbar spasm.
== END | disposition home or self-care (01) ==
LOC: RAH 12:32
PROVIDERS: ATTEND Internal Medicine
DX: M47.814 Spondylosis without myelopathy or radiculopathy, thoracic region (principal); M54.50 Low back pain, unspecified; M54.6 Pain in thoracic spine
CPT/HCPCS: 72070; 72100

== ENCOUNTER 2025-06-10 12:10 | Observation (INO) | payer OTHER ==
[~2025-06-10] VITALS: Ht 165.1 cm; Wt 79.4 kg
[~2025-06-10 12:10] MED LIST changes: +AMIT25TA21 PO; -AMIT25TA9 PO; +ZOLP-685 PO; -ZOLP10TA2 PO
[2025-06-10 12:51] LABS: NUCLEATED RED BLOOD CELLS 0.0 % (0.0-0.19); PLATELET COUNT (AUTO) 212.0 K/uL (130-400); RED BLOOD CELL COUNT(AUTO) 4.92 MIL/uL (4.50-6.20); RED CELL DISTRIBUTION WIDTH 14.2 % (11.0-15.5); WHITE BLOOD COUNT (AUTO) 9.5 K/uL (4.8-10.8)
[2025-06-10 13:07] LABS: ASPARTATE AMINOTRANSFERASE 16.0 U/L (10-37); CREATINE KINASE, TOTAL 46.0 U/L (21-232); CREATININE 0.8 mg/dL (0.5-1.3); GLOMERULAR FILTR. RATE CALC 97.0 mL/min (>90); GLUCOSE,RANDOM 92.0 mg/dL (70-105); SODIUM SERUM 143.0 mmol/L (136-145); TOTAL PROTEIN, SERUM 6.6 g/dL (6.0-8.3); UREA NITROGEN, BLOOD 13.0 mg/dL (7-18)
[2025-06-10 13:08] LABS: ERYTHROCYTE SEDIMENTATION RATE 6.0 MM/HR (0-20)
--- NOTE | 2025-06-10 13:32 | EKG ---
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
--- NOTE | 2025-06-10 13:37 | HMCIMG ---
EXAM: CR Chest, 2 View. CLINICAL HISTORY: ASTHMA EXACERBATION COMPARISON: None provided. FINDINGS: LUNGS: The lungs show no infiltrate or other acute finding. PLEURAL SPACES: No evidence of pleural effusion or pneumothorax. MEDIASTINUM: Cardiac size and mediastinal contours within normal limits. BONES: No aggressive appearing osseous lesion seen. IMPRESSION: No acute cardiopulmonary pathology is evident. /[place]
--- NOTE | 2025-06-10 16:17 | NUR ---
DCP:HOME Pt currently lives at home with his . Pt states that he has a wheelchair and a prosthetic leg that he uses at home. Pt does not have home health or provider services. PCP is Dr Lancaster and uses [facility] for any RX needs. At [place] pt will want to go home and family can assist with transportation.
[2025-06-10] MEDS ORDERED: IOHEXOL 350 MG/ML 100ML INFUS..BTL IV ONE (18:06)
--- NOTE | 2025-06-10 18:41 | HMCIMG ---
EXAM: CT Chest with Intravenous Contrast. CT Abdomen with Intravenous Contrast CLINICAL HISTORY: Asthma exacerbation. TECHNIQUE: Axial computed tomography images of the chest and abdomen with intravenous contrast. CONTRAST: Administered intravenously. COMPARISON: None provided. FINDINGS: CHEST: LUNGS: Subsegmental atelectasis with few fibrotic strands in the right middle lobe, inferior lingula, and bilateral lower lobes. No pulmonary mass. PLEURAL SPACES: No pneumothorax evident. No pleural effusions. CARDIOVASCULAR: Coronary artery calcifications. Atheromatous calcifications in the aorta without evidence of aneurysm. No cardiomegaly. No significant pericardial effusion. LYMPH NODES: No lymphadenopathy is evident. ABDOMEN: LIVER: Unremarkable. No focal lesions. GALLBLADDER AND BILE DUCTS: The gallbladder is surgically absent. No biliary ductal dilatation is evident. PANCREAS: Unremarkable. SPLEEN: Unremarkable. ADRENAL GLANDS: Unremarkable. KIDNEYS AND VISUALIZED URETERS: Right renal cyst in the upper pole measures approximately 2 cm. No hydronephrosis or nephrolithiasis. No ureteral calculi. STOMACH AND VISUALIZED BOWEL: Unremarkable appearance of the stomach and bowel. No evidence of bowel obstruction. No evidence suggesting enteritis or colitis. Large amount of stool in the colon. PERITONEUM: No free fluid. No free air. LYMPH NODES: No lymphadenopathy is evident. VASCULATURE: No evidence of abdominal aortic aneurysm. BONES: Multilevel mild degenerative changes are seen in the spine. No acute osseous abnormality. IMPRESSION: No acute intra-thoracic or intra-abdominal abnormality. Please note that the pelvis was not imaged on this exam. Subsegmental atelectasis with fibrotic strands in the right middle lobe, inferior lingula, and bilateral lower lobes. No pulmonary infiltrates or pleural effusions. Coronary artery calcifications and atheromatous calcifications in the aorta without aneurysm. Right upper pole renal cyst measures approximately 2 cm. No hydronephrosis. No bowel obstruction. Constipation. /[place]
[2025-06-10] MEDS ORDERED: guaiFENesin-DM 200/20MG 10ML PO PRN (20:00)
--- NOTE | 2025-06-10 20:28 | HP ---
HISTORY AND PHYSICAL NOTE DATE OF CONSULTATION: 06/10/25 REASON FOR CONSULTATION: Shortness of breath one week HISTORY OF PRESENT ILLNESS: Patient has been treated as an outpatient for asthma exacerbation with steroids antibiotics without improvement with persistent dyspnea cough and wheezing he is being admitted for failed outpatient management. He denies any fever chills or rigors no pleuritic pain or hemoptysis PAST MEDICAL HISTORY: Chronic obstructive pulmonary disease, rheumatoid arthritis, below-knee amputation status, peripheral arterial disease, hypertension, spinal stenosis, lumbar spine surgery, obesity, chronic ALLERGIES: Coded Allergies: No Known Allergies (Unverified Allergy, Unknown, 01/08/14) HOME MEDS: Reported Medications Alendronate Sodium (Alendronate Sodium) 70 Mg Tablet, 70 MG PO QWEEK, TAB 11/07/23 Rosuvastatin Calcium (Rosuvastatin Calcium) 40 Mg Tablet, 40 MG PO AM, TAB 11/07/23 Rivaroxaban (Xarelto) 2.5 Mg Tablet, 2.5 MG PO BID, TAB 11/07/23 Pantoprazole Sodium (Pantoprazole Sodium) 40 Mg Tablet.dr, 40 MG PO AM, TAB 11/07/23 Hydroxychloroquine Sulfate (Hydroxychloroquine Sulfate) 200 Mg Tablet, 200 MG PO BID, TAB 11/07/23 Hydrocodone/Acetaminophen (Hydrocodon-Acetaminophn 10-325) 10 Mg-325 Mg Tablet, 1 EACH PO QID, TAB 11/07/23 Cyanocobalamin (Vitamin B-12) 1,000 Mcg/Ml Inj, 1000 MCG IM QMONTH, ML 11/07/23 Lorazepam (Ativan) 1 Mg Tablet, 1 MG PO BID, TAB 11/07/23 Methotrexate Sodium (Methotrexate) 2.5 Mg Tablet, 2.5 MG PO QWEEK, TAB 11/07/23 Zolpidem Tartrate (Ambien) 10 Mg Tablet, 10 MG PO HS, TAB 11/07/23 Folic Acid (Folvite) 1 Mg Tab, 1 MG PO AM, TAB 11/07/23 Clopidogrel Bisulfate (Clopidogrel) 75 Mg Tablet, 75 MG PO AM, TAB 11/07/23 Cholecalciferol (Vitamin D3) 1,250 Mcg (08764 Unit) Cap, 48280 UNITS PO QWEEK, CAP 11/07/23 Amitriptyline HCl (Amitriptyline HCl) 25 Mg Tablet, 25 MG PO AM, TAB 11/07/23 INPATIENT MEDS: Current Medications Medications Dose Ordered Sig/[place] Start Time Stop Time Status Last Admin Ceftriaxone Sodium 1 gm Q24H 06/10/25 20:00 06/20/25 19:59 Azithromycin 250 ml @ 250 mls/hr Q24H 06/10/25 21:00 06/20/25 20:59 Methylprednisolone Sodium Succinate 125 mg BID 06/10/25 21:00 07/10/25 20:59 Clonidine HCl 0.1 mg Q4H PRN 06/10/25 20:00 07/10/25 19:59 Guaifenesin/ Dextromethorphan 10 ml Q4H PRN 06/10/25 20:00 07/10/25 19:59 Zolpidem Tartrate 5 mg HS 06/10/25 21:00 07/10/25 20:59 Ondansetron HCl 4 mg Q6H PRN 06/10/25 20:00 07/10/25 19:59 Acetaminophen 650 mg Q6H PRN 06/10/25 20:00 07/10/25 19:59 Acetaminophen 650 mg Q6H PRN 06/10/25 20:00 07/10/25 19:59 Albuterol Sulfate 2.5MG [id number] 06/10/25 22:00 07/10/25 21:59 Ipratropium [place] 0.5 MG [id number] 06/10/25 22:00 07/10/25 21:59 Sodium Chloride 1,000 ml @ 80 mls/hr [id number] 06/10/25 20:00 07/10/25 19:59 Insulin Human Regular INSULIN SLIDING SCAL... ACHS 06/10/25 21:00 07/10/25 20:59 VITAL SIGNS Vital Signs Date Time Temp Pulse Resp B/P (MAP) Pulse Ox O2 Delivery O2 Flow Rate FiO2 06/10/25 12:11 98.2 82 18 136/88 98 Room Air REVIEW OF SYSTEMS Ten review of systems negative other than stated above PHYSICAL EXAM HEENT atraumatic normocephalic head Neck is supple Lungs reveal diminished air entry both lungs bilaterally with expiratory wheeze Heart was S1 and S2 is heard no murmur no JVD Abdomen is soft and benign no masses palpable Extremities no pedal edema Benign patient's status to the right leg noted Skin exam unremarkable Neurologic exam no focal deficits Psychiatric no depression LABORATORY RESULTS Laboratory Tests 06/10/25 12:40: White Blood Count 9.5, Red Blood Count 4.92, Hemoglobin 14.9, Hematocrit 44.9, Mean Corpuscular Volume 91.3, Mean Corpuscular Hemoglobin 30.3, Mean Corpuscular Hemoglobin Concent 33.2, Red Cell Distribution Width 14.2, Platelet Count 212, Mean Platelet Volume 8.5, Nucleated Red Blood Cells 0.0, Erythrocyte Sedimentation Rate 6, Sodium Level 143, Potassium Level 4.2, Chloride Level 106, Carbon Dioxide Level 30, Blood Urea Nitrogen 13, Creatinine 0.8, Glomerular Filtration Rate Calc 97, Random Glucose 92, Lactic Acid Level 1.5, Total Calcium 8.5, Total Bilirubin 0.5, Aspartate Amino Transf (AST/SGOT) 16, Alanine Aminotransferase (ALT/SGPT) 19, Alkaline Phosphatase 76, Total Creatine Kinase 46, Troponin I High Sensitivity 9.7, C-Reactive Protein, Quantitative 1.70, Total Protein 6.6, Albumin 3.6 PROBLEM LIST: (1) Asthma exacerbation ICD Codes: J45.901 - Unspecified asthma with (acute) exacerbation (2) Rheumatoid Arthritis (3) Pneumonia, organism unspecified ICD Codes: J18.9 - Pneumonia, organism unspecified PLAN Empiric antibiotics IV steroids bronchodilators consult Pulmonary Resume home medication XIOMY SALAZAR MD Jun 10, 2025 20:28
[2025-06-10] MEDS ORDERED: ERGO500093 PO (20:55)
[2025-06-10] MEDS ORDERED: ASPI-1005 PO (20:55)
--- NOTE | 2025-06-10 22:54 | CONS ---
[facility] CONSULTATION NOTE Date Patient Seen: Jun 10, 2025 Time of Visit: 22:47 Supervising Physician: Dr. Yong Reynolds Reason for Consultation: COPD exacerbation Consulting Physician: Dr Lancaster Outpatient Specialists: [ ] Inpatient Consults: [facility] pulmonology PROBLEM LIST: Acute hypoxic respiratory failure, POA COPD/asthma exacerbation, POA Chronic bronchitis, POA Hypertension, POA DM type 2, POA History of PVD s/p right BKA PLAN: Admit per primary Continue scheduled steroid Continue scheduled nebs Aspiration precautions Continue antibiotic Keep head of bed above 30 Incentive spirometry Deep breathing exercises Start with Mucomyst q.6 Budesonide neb b.i.d. Facilitate neb treatment now Rest of plan care of primary HPI: 69-year-old male with past medical history of DM type 2, hypertension, hyperlipidemia, PVD s/p right BKA, COPD/asthma/chronic bronchitis who presented to ED with complaint of worsening shortness of breaths, and greenish phlegm and found to have acute hypoxic respiratory failure, and COPD/asthma exacerbation. Patient was seen and examined in ED with no relatives present at bedside. Apparently he has been having issues with cough, phlegm, and shortness of breaths for the past six days, cc PCP multiple times with no significant improvement, also using albuterol almost every day with no improvement. Patient was then advised to come to ED for further medical evaluation. In ED stat chest x-ray was done showed no acute infiltrates or consolidation, his chemistry showed no acute electrolyte or kidney dysfunction, CBC unrevealing for any acute anemia or infection. On examination there is diffuse wheezing on bilateral lung garcia, with some distress. Patient was subsequently started on neb treatment, antibiotic therapy, and IV steroid. [facility] pulmonology was consulted for evaluation of acute hypoxic respiratory failure. At present patient is currently hemodynamically stable, there is noticeable shortness of breaths, bilateral wheezing on auscultation, denies any headache, fever, abdominal pain, difficulty breathing, or muscle ache. Patient only complains of cough, shortness of breath, and chest pressure. Patient denies any smoking, alcohol intake, or illicit drug use. PAST MEDICAL HX: see above PAST SURGICAL HX: noncontributory SOCIAL HISTORY: No tobacco, ETOH, or illicit drug use Coded Allergies: No Known Allergies (Unverified Allergy, Unknown, 01/08/14) REVIEW OF SYSTEMS: 12 point ROS reviewed with patient. Pertinent positives mentioned above. Otherwise negative. PHYSICAL EXAM: GENERAL: alert, weak, awake oriented x 3 HEENT: EOMI, Sclera non icteric, moist mucosa NECK: Supple, no JVD, trachea midline LUNGS: Scattered wheezing bilaterally HEART: Regular rate and rhythm. Normal S1 and S2, without murmurs ABD: Abdomen soft, nontender. Bowel sounds present EXT: No clubbing cyanosis or edema NEURO: Alert and oriented to person, follows commands Vital Signs (last 8hr) Date Time Temp Pulse Resp B/P (MAP) Pulse Ox O2 Delivery O2 Flow Rate FiO2 06/10/25 20:00 98.2 67 20 121/70 93 Room Air* 0 21 LABS: Hematology Labs: Test 06/10/25 12:40 Range/Units White Blood Count 9.5 4.8-10.8 K/uL Red Blood Count 4.92 4.50-6.20 MIL/uL Hemoglobin 14.9 14.0-18.0 g/dL Hematocrit 44.9 42-54 % Mean Corpuscular Volume 91.3 79-99 fL Mean Corpuscular Hemoglobin 30.3 27.0-33.0 pg Mean Corpuscular Hemoglobin Concent 33.2 32.0-36.0 g/dL Red Cell Distribution Width 14.2 11.0-15.5 % Platelet Count 212 130-400 K/uL Mean Platelet Volume 8.5 7.5-10.5 fL Nucleated Red Blood Cells 0.0 0.0-0.19 % Erythrocyte Sedimentation Rate 6 0-20 MM/HR Chemistry Labs: Test 06/10/25 12:40 Range/Units Sodium Level 143 136-145 mmol/L Potassium Level 4.2 3.5-5.1 mmol/L Chloride Level 106 101-111 mmol/L Carbon Dioxide Level 30 21-32 mmol/L Blood Urea Nitrogen 13 7-18 mg/dL Creatinine 0.8 0.5-1.3 mg/dL Glomerular Filtration Rate Calc 97 >90 mL/min Random Glucose 92 70-105 mg/dL Lactic Acid Level 1.5 0.8-2.5 mmol/L Total Calcium 8.5 8.5-10.1 mg/dL Total Bilirubin 0.5 0.2-1.0 mg/dL Aspartate Amino Transf (AST/SGOT) 16 10-37 U/L Alanine Aminotransferase (ALT/SGPT) 19 12-78 U/L Alkaline Phosphatase 76 50-136 U/L Total Creatine Kinase 46 # 21-232 U/L Troponin I High Sensitivity 9.7 4-75 ng/L C-Reactive Protein, Quantitative 1.70 0.5-3.0 mg/L Total Protein 6.6 6.0-8.3 g/dL Albumin 3.6 3.5-5.0 g/dL DIAGNOSTICS / RADIOLOGY RESULTS: EXAM: CR Chest, 2 View. CLINICAL HISTORY: ASTHMA EXACERBATION COMPARISON: None provided. FINDINGS: LUNGS: The lungs show no infiltrate or other acute finding. PLEURAL SPACES: No evidence of pleural effusion or pneumothorax. MEDIASTINUM: Cardiac size and mediastinal contours within normal limits. BONES: No aggressive appearing osseous lesion seen. IMPRESSION: No acute cardiopulmonary pathology is evident. PLAN NEURO: Minimize central acting medications as possible. Maintain fall precautions, adequate lighting during the day PULMONARY: Supplemental 02 as needed. Maintain aspiration precautions at all times CARDIOVASCULAR: Follow hemodynamics. Vital signs per facility protocol GI & NUTRITION: Continue with nutritional support. Continue stool softeners and laxatives as needed. KIDNEYS & ELECTROLYTES: Strict monitoring of intake, output and overall fluid balance. Avoid nephrotoxic medications to the extent possible. Medications to be dosed according to renal function. Monitor electrolytes and replace as needed ENDOCRINE: Maintain blood glucose between 100-180 at all times. Hypoglycemia protocol in place INFECTIOUS DISEASE: Trend temperature, WBC and procalcitonin level Follow cultures, deescalate antibiotics as soon as possible. Panculture if new onset fever ONCOLOGY/HEMATOLOGY/COAGULATION: Monitor for s/s of bleeding Monitor hemoglobin, coagulation studies as needed SKIN: Pressure ulcer prevention per facility protocol Specialty mattress ORTHO/REHAB: Continue PT/OT Prophylaxis: Continue GI and DVT prophylaxis Code Status: Full Resuscitation Disposition: TBD Supervising physician: YAN Dimas AGACNP Jun 10, 2025 22:54
[2025-06-10] MEDS: AZITHROMYCIN 500MG+NS 250ML 250 ML IVPB SCH (22:56)
[2025-06-10] MEDS: ALBUTEROL 0.083% 2.5 MG/3 ML INH IH SCH (23:46)
[2025-06-10 23:49] VITALS: PULSE 77; RESP 19; O2SAT 100
[2025-06-10 23:49] LABS: SARS-CoV-2, RNA, NAAT NEGATIVE SARS CoV-2 (NEGATIVE)
[2025-06-10 23:53] LABS: INFLUENZA TYPE A Negative For Type A (NEGATIVE); INFLUENZA TYPE B Negative For Type B (NEGATIVE)
[2025-06-10] MEDS: ALBUTEROL 0.083% 2.5 MG/3 ML INH IH ONE (23:58)
[2025-06-11] VITALS (16 sets, daily range): BP systolic 122–135; BP diastolic 64–76; PULSE 67–89; RESP 17–18; TEMP 97.4–98.4; O2SAT 94–98
[2025-06-11] MEDS: 1/2 NS 1000ML 1,000 ML IV SCH (00:09)
[2025-06-11 06:02] LABS: NUCLEATED RED BLOOD CELLS 0.0 % (0.0-0.19); PLATELET COUNT (AUTO) 171.0 K/uL (130-400); RED BLOOD CELL COUNT(AUTO) 4.37 MIL/uL (4.50-6.20); RED CELL DISTRIBUTION WIDTH 13.8 % (11.0-15.5); WHITE BLOOD COUNT (AUTO) 7.0 K/uL (4.8-10.8)
[2025-06-11 06:16] LABS: ASPARTATE AMINOTRANSFERASE 14.0 U/L (10-37); CREATININE 1.0 mg/dL (0.5-1.3); GLOMERULAR FILTR. RATE CALC 82.0 mL/min (>90); GLUCOSE,RANDOM 177.0 mg/dL (70-105); SODIUM SERUM 141.0 mmol/L (136-145); TOTAL PROTEIN, SERUM 5.6 g/dL (6.0-8.3); UREA NITROGEN, BLOOD 13.0 mg/dL (7-18)
[2025-06-11] MEDS: BUDESONIDE 0.5 MG/2 ML INH IH SCH (06:32)
--- NOTE | 2025-06-11 13:15 | PN ---
[facility] PROGRESS NOTE Date Patient Seen: Jun 11, 2025 Time of Visit: 13:07 Supervising Physician: [Dr Tejeda Consulting Physician: Dr Salazar Outpatient Specialists: [ ] Inpatient Consults: [facility] pulmonology PROBLEM LIST: Acute hypoxic respiratory failure, POA -resolved COPD/asthma exacerbation, POA Chronic bronchitis, POA Hypertension, POA DM type 2, POA History of PVD s/p right BKA INTERVAL HISTORY: 69-year-old male with past medical history of DM type 2, hypertension, hyperlipidemia, PVD s/p right BKA, COPD/asthma/chronic bronchitis who presented to ED with complaint of worsening shortness of breaths, and greenish phlegm and found to have acute hypoxic respiratory failure, and COPD/asthma exacerbation. Patient was seen and examined in ED with no relatives present at bedside. Appa rently he has been having issues with cough, phlegm, and shortness of breaths for the past six days, cc PCP multiple times with no significant improvement, also using albuterol almost every day with no improvement. Patient was then advised to come to ED for further medical evaluation. In ED stat chest x-ray was done showed no acute infiltrates or consolidation, his chemistry showed no acute electrolyte or kidney dysfunction, CBC unrevealing for any acute anemia or infection. On examination there is diffuse wheezing on bilateral lung garcia, with some distress. Patient was subsequently started on neb treatment, antibiotic therapy, and IV steroid. [facility] pulmonology was consulted for evaluation of acute hypoxic respiratory failure. 06/11 - patient is seen and evaluated at the bedside. Patient is sitting up in bed appears to be weak and deconditioned. Patient has been weaned off O2 and currently on room air and reports respiratory status improved significantly in comparison to yesterday. Patient does continue with the minimal wheezing on bilateral lungs via auscultation. Patient does report minimal dyspnea with the exertion. Patient to continue on current antibiotic treatment. Patient to continue with the Mucomyst, Pulmicort, and DuoNebs. Patient to continue with a short course of high-dose steroids and we will begin tapering in a.m.. Patient had a CT scan chest shows atelectasis with few fibrotic strands in the right middle lobe, inferior lingula and bilateral lower lobes. We will continue [facility] nt treatment plan for now. We will continue to follow with you. PLAN SUMMARY: Supplemental oxygen as needed Patient currently on room air IS while awake Continue DuoNebs Continue Pulmicort Continue Rocephin Continue azithromycin Continue Solu-Medrol Taper in a.m. 6 minute walk test prior to discharge Patient follow up with Pulmonary clinic two weeks post discharge REVIEW OF SYSTEMS: 12 point ROS reviewed with patient. Pertinent positives mentioned above. Otherwise negative. PHYSICAL EXAM: GENERAL: alert, weak, awake oriented x 3 HEENT: EOMI, Sclera non icteric, moist mucosa NECK: Supple, no JVD, trachea midline LUNGS: Scattered wheezing bilaterally HEART: Regular rate and rhythm. Normal S1 and S2, without murmurs ABD: Abdomen soft, nontender. Bowel sounds present EXT: No clubbing cyanosis or edema NEURO: Alert and oriented to person, follows commands Vital Signs (last 8hr) Date Time Temp Pulse Resp B/P (MAP) Pulse Ox O2 Delivery O2 Flow Rate FiO2 06/11/25 12:00 97.9 83 18 127/64 89 Room Air 06/11/25 10:37 85 18 N/A Room Air 06/11/25 10:34 85 18 06/11/25 08:00 94 Room Air* 0 21 06/11/25 08:00 97.3 86 18 123/72 94 Room Air 06/11/25 06:37 67 18 N/A Room Air 21 06/11/25 06:33 67 18 LABS: Hematology Labs: Test 06/11/25 05:55 06/10/25 12:40 Range/Units White Blood Count 7.0 # 4.8-10.8 K/uL Red Blood Count 4.37 L 4.50-6.20 MIL/uL Hemoglobin 13.4 L 14.0-18.0 g/dL Hematocrit 39.4 L 42-54 % Mean Corpuscular Volume 90.2 79-99 fL Mean Corpuscular Hemoglobin 30.7 27.0-33.0 pg Mean Corpuscular Hemoglobin Concent 34.0 32.0-36.0 g/dL Red Cell Distribution Width 13.8 11.0-15.5 % Platelet Count 171 130-400 K/uL Mean Platelet Volume 8.2 7.5-10.5 fL Nucleated Red Blood Cells 0.0 0.0-0.19 % Erythrocyte Sedimentation Rate 6 0-20 MM/HR Chemistry Labs: Test 06/11/25 05:55 06/10/25 23:05 06/10/25 12:40 Range/Units Sodium Level 141 136-145 mmol/L Potassium Level 4.0 3.5-5.1 mmol/L Chloride Level 105 101-111 mmol/L Carbon Dioxide Level 28 21-32 mmol/L Blood Urea Nitrogen 13 7-18 mg/dL Creatinine 1.0 0.5-1.3 mg/dL Glomerular Filtration Rate Calc 82 >90 mL/min Random Glucose 177 #H 70-105 mg/dL Total Calcium 8.0 L 8.5-10.1 mg/dL Total Bilirubin 0.3 # 0.2-1.0 mg/dL Aspartate Amino Transf (AST/SGOT) 14 10-37 U/L Alanine Aminotransferase (ALT/SGPT) 18 12-78 U/L Alkaline Phosphatase 68 50-136 U/L Total Protein 5.6 L 6.0-8.3 g/dL Albumin 3.1 L 3.5-5.0 g/dL Whole Blood Glucose 100 70-110 MG/DL Lactic Acid Level 1.5 0.8-2.5 mmol/L Total Creatine Kinase 46 # 21-232 U/L Troponin I High Sensitivity 9.7 4-75 ng/L C-Reactive Protein, Quantitative 1.70 0.5-3.0 mg/L DIAGNOSTICS / RADIOLOGY RESULTS: PATIENT: BRE CLAY MR#: [id number] : 1955 SEX: M AGE: 69 LOCATION: [facility] ORDER [id number] STATUS: ADM IN REPORT#: [id number] SERVICE 1216 REASON: ASTHMA EXACERBATION ORDERING PHYSICIAN: XIOMY SALAZAR MD PROCEDURE: CHESTAB W - CT CHEST ABDOMEN W/CONTRAST EXAM: CT Chest with Intravenous Contrast. CT Abdomen with Intravenous Contrast CLINICAL HISTORY: Asthma exacerbation. TECHNIQUE: Axial computed tomography images of the chest and abdomen with intravenous contrast. CONTRAST: Administered intravenously. COMPARISON: None provided. FINDINGS: CHEST: LUNGS: Subsegmental atelectasis with few fibrotic strands in the right middle lobe, inferior lingula, and bilateral lower lobes. No pulmonary mass. PLEURAL SPACES: No pneumothorax evident. No pleural effusions. CARDIOVASCULAR: Coronary artery calcifications. Atheromatous calcifications in the aorta without evidence of aneurysm. No cardiomegaly. No significant pericardial effusion. LYMPH NODES: No lymphadenopathy is evident. ABDOMEN: LIVER: Unremarkable. No focal lesions. GALLBLADDER AND BILE DUCTS: The gallbladder is surgically absent. No biliary ductal dilatation is evident. PANCREAS: Unremarkable. SPLEEN: Unremarkable. ADRENAL GLANDS: Unremarkable. KIDNEYS AND VISUALIZED URETERS: Right renal cyst in the upper pole measures approximately 2 cm. No hydronephrosis or nephrolithiasis. No ureteral calculi. STOMACH AND VISUALIZED BOWEL: Unremarkable appearance of the stomach and bowel. No evidence of bowel obstruction. No evidence suggesting enteritis or colitis. Large amount of stool in the colon. PERITONEUM: No free fluid. No free air. LYMPH NODES: No lymphadenopathy is evident. VASCULATURE: No evidence of abdominal aortic aneurysm. BONES: Multilevel mild degenerative changes are seen in the spine. No acute osseous abnormality. IMPRESSION: No acute intra-thoracic or intra-abdominal abnormality. Please note that the pelvis was not imaged on this exam. Subsegmental atelectasis with fibrotic strands in the right middle lobe, inferior lingula, and bilateral lower lobes. No pulmonary infiltrates or pleural effusions. Coronary artery calcifications and atheromatous calcifications in the aorta without aneurysm. Right upper pole renal cyst measures approximately 2 cm. No hydronephrosis. No bowel obstruction. Constipation. /[place] DICTATED BY: RAJAN ELIAS MD DATE: 06/10/251939 ELECTRONICALLY SIGNED BY: RAJAN ELIAS MD DATE: 06/10/251939 PLAN NEURO: Minimize central acting medications as possible. Maintain fall precautions, adequate lighting during the day PULMONARY: Supplemental 02 as needed. Maintain aspiration precautions at all times CARDIOVASCULAR: Follow hemodynamics. Vital signs per facility protocol GI & NUTRITION: Continue with nutritional support. Continue stool softeners and laxatives as needed. KIDNEYS & ELECTROLYTES: Strict monitoring of intake, output and overall fluid balance. Avoid nephrotoxic medications to the extent possible. Medications to be dosed according to renal function. Monitor electrolytes and replace as needed ENDOCRINE: Maintain blood glucose between 100-180 at all times. Hypoglycemia protocol in place INFECTIOUS DISEASE: Trend temperature, WBC and procalcitonin level Follow cultures, deescalate antibiotics as soon as possible. Panculture if new onset fever ONCOLOGY/HEMATOLOGY/COAGULATION: Monitor for s/s of bleeding Monitor hemoglobin, coagulation studies as needed SKIN: Pressure ulcer prevention per facility protocol Specialty mattress ORTHO/REHAB: Continue PT/OT Prophylaxis: Continue GI and DVT prophylaxis Code Status: Full Resuscitation Disposition: As per attending ATTESTATION BY PHYSICIAN I attest that I reviewed and discussed the case with the Physician Leaf Tinner as well as agree with the Physician Leaf Tinner's findings, plans of care, and documentation above. Jf Webb MD,JIGNESH N [facility] Jun 11, 2025 13:15
[2025-06-11] MEDS: ALBUTEROL 0.083% 2.5 MG/3 ML INH IH SCH (19:22)
--- NOTE | 2025-06-11 22:09 | PN ---
PROGRESS NOTE PROGRESS NOTE DATE OF PROGRESS NOTE: 06/11/25 SUBJECTIVE: continue with dyspnea VITAL SIGNS Vital Signs Date Time Temp Pulse Resp B/P (MAP) Pulse Ox O2 Delivery O2 Flow Rate FiO2 06/11/25 20:00 98.2 75 18 122/64 94 Room Air 06/11/25 19:25 21 06/11/25 08:00 0 PHYSICAL EXAM: HEENT atraumatic normocephalic head Neck is supple Lungs reveal diminished air entry both lungs bilaterally with expiratory wheeze Heart was S1 and S2 is heard no murmur no JVD Abdomen is soft and benign no masses palpable Extremities no pedal edema Benign patient's status to the right leg noted Skin exam unremarkable Neurologic exam no focal deficits Psychiatric no depression LABORATORY: Laboratory Result(s) Test 06/10/25 23:00 06/10/25 23:05 06/11/25 05:55 06/11/25 18:07 Influenza Type A Antigen Negative For Type A Influenza Type B Antigen Negative For Type B SARS-CoV-2, RNA, NAAT NEGATIVE SARS CoV-2 Whole Blood Glucose 100 MG/DL (70-110) 184 MG/DL (70-110) White Blood Count 7.0 K/uL (4.8-10.8) Red Blood Count 4.37 MIL/uL (4.50-6.20) Hemoglobin 13.4 g/dL (14.0-18.0) Hematocrit 39.4 % (42-54) Mean Corpuscular Volume 90.2 fL (79-99) Mean Corpuscular Hemoglobin 30.7 pg (27.0-33.0) Mean Corpuscular Hemoglobin Concent 34.0 g/dL (32.0-36.0) Red Cell Distribution Width 13.8 % (11.0-15.5) Platelet Count 171 K/uL (130-400) Mean Platelet Volume 8.2 fL (7.5-10.5) Nucleated Red Blood Cells 0.0 % (0.0-0.19) Sodium Level 141 mmol/L (136-145) Potassium Level 4.0 mmol/L (3.5-5.1) Chloride Level 105 mmol/L (101-111) Carbon Dioxide Level 28 mmol/L (21-32) Blood Urea Nitrogen 13 mg/dL (7-18) Creatinine 1.0 mg/dL (0.5-1.3) Glomerular Filtration Rate Calc 82 mL/min (>90) Random Glucose 177 mg/dL (70-105) Total Calcium 8.0 mg/dL (8.5-10.1) Total Bilirubin 0.3 mg/dL (0.2-1.0) Aspartate Amino Transf (AST/SGOT) 14 U/L (10-37) Alanine Aminotransferase (ALT/SGPT) 18 U/L (12-78) Alkaline Phosphatase 68 U/L (50-136) Total Protein 5.6 g/dL (6.0-8.3) Albumin 3.1 g/dL (3.5-5.0) INPATIENT MEDS: Current Medications Medications Dose Ordered Sig/[place] Start Time Stop Time Status Last Admin Ceftriaxone Sodium 1 gm Q24H 06/10/25 20:00 06/20/25 19:59 06/11/25 20:22 Azithromycin 250 ml @ 250 mls/hr Q24H 06/10/25 21:00 06/20/25 20:59 06/11/25 21:38 Methylprednisolone Sodium Succinate 125 mg BID 06/10/25 21:00 07/10/25 20:59 06/11/25 20:23 Guaifenesin/ Dextromethorphan 10 ml Q4H PRN 06/10/25 20:00 07/10/25 19:59 Zolpidem Tartrate 5 mg HS 06/10/25 21:00 07/10/25 20:59 06/11/25 21:39 Ondansetron HCl 4 mg Q6H PRN 06/10/25 20:00 07/10/25 19:59 Acetaminophen 650 mg Q6H PRN 06/10/25 20:00 07/10/25 19:59 Acetaminophen 650 mg Q6H PRN 06/10/25 20:00 07/10/25 19:59 Sodium Chloride 1,000 ml @ 80 mls/hr [id number] 06/10/25 20:00 07/10/25 19:59 06/11/25 08:30 Insulin Human Regular INSULIN SLIDING SCAL... ACHS 06/10/25 21:00 07/10/25 20:59 06/11/25 18:29 Budesonide 0.5 mg BIDRESP 06/11/25 06:00 07/11/25 05:59 06/11/25 19:21 Acetylcysteine 400mg = 2ml [id number] 06/11/25 00:00 07/11/25 00:00 06/11/25 19:22 Albuterol Sulfate 2.5MG [id number] 06/11/25 18:00 07/10/25 21:59 06/11/25 19:22 Ipratropium [place] 0.5 MG [id number] 06/11/25 18:00 07/10/25 21:59 06/11/25 19:22 PROBLEM LIST: (1) Asthma exacerbation ICD Code: J45.901 - Unspecified asthma with (acute) exacerbation (2) Rheumatoid Arthritis (3) Pneumonia, organism unspecified ICD Code: J18.9 - Pneumonia, organism unspecified PLAN: Empiric antibiotics IV steroids bronchodilators consult Pulmonary Resume home medication XIOMY SALAZAR MD Jun 11, 2025 22:09
[2025-06-12] VITALS (8 sets, daily range): BP systolic 113–148; BP diastolic 54–76; PULSE 60–72; RESP 18–20; TEMP 97.8–98.1; O2SAT 95–100
--- NOTE | 2025-06-12 05:31 | PN ---
PROGRESS NOTE PROGRESS NOTE DATE OF PROGRESS NOTE: 06/12/25 SUBJECTIVE: doing better VITAL SIGNS Vital Signs Date Time Temp Pulse Resp B/P (MAP) Pulse Ox O2 Delivery O2 Flow Rate FiO2 06/12/25 03:51 98.1 72 18 113/54 95 Room Air 06/11/25 23:13 21 06/11/25 20:15 0 PHYSICAL EXAM: HEENT atraumatic normocephalic head Neck is supple Lungs reveal diminished air entry both lungs bilaterally with expiratory wheeze Heart was S1 and S2 is heard no murmur no JVD Abdomen is soft and benign no masses palpable Extremities no pedal edema Benign patient's status to the right leg noted Skin exam unremarkable Neurologic exam no focal deficits Psychiatric no depression LABORATORY: Laboratory Result(s) Test 06/11/25 05:55 06/11/25 18:07 White Blood Count 7.0 K/uL (4.8-10.8) Red Blood Count 4.37 MIL/uL (4.50-6.20) Hemoglobin 13.4 g/dL (14.0-18.0) Hematocrit 39.4 % (42-54) Mean Corpuscular Volume 90.2 fL (79-99) Mean Corpuscular Hemoglobin 30.7 pg (27.0-33.0) Mean Corpuscular Hemoglobin Concent 34.0 g/dL (32.0-36.0) Red Cell Distribution Width 13.8 % (11.0-15.5) Platelet Count 171 K/uL (130-400) Mean Platelet Volume 8.2 fL (7.5-10.5) Nucleated Red Blood Cells 0.0 % (0.0-0.19) Sodium Level 141 mmol/L (136-145) Potassium Level 4.0 mmol/L (3.5-5.1) Chloride Level 105 mmol/L (101-111) Carbon Dioxide Level 28 mmol/L (21-32) Blood Urea Nitrogen 13 mg/dL (7-18) Creatinine 1.0 mg/dL (0.5-1.3) Glomerular Filtration Rate Calc 82 mL/min (>90) Random Glucose 177 mg/dL (70-105) Total Calcium 8.0 mg/dL (8.5-10.1) Total Bilirubin 0.3 mg/dL (0.2-1.0) Aspartate Amino Transf (AST/SGOT) 14 U/L (10-37) Alanine Aminotransferase (ALT/SGPT) 18 U/L (12-78) Alkaline Phosphatase 68 U/L (50-136) Total Protein 5.6 g/dL (6.0-8.3) Albumin 3.1 g/dL (3.5-5.0) Whole Blood Glucose 184 MG/DL (70-110) INPATIENT MEDS: Current Medications Medications Dose Ordered Sig/[place] Start Time Stop Time Status Last Admin Ceftriaxone Sodium 1 gm Q24H 06/10/25 20:00 06/20/25 19:59 06/11/25 20:22 Azithromycin 250 ml @ 250 mls/hr Q24H 06/10/25 21:00 06/20/25 20:59 06/11/25 21:38 Methylprednisolone Sodium Succinate 125 mg BID 06/10/25 21:00 07/10/25 20:59 06/11/25 20:23 Guaifenesin/ Dextromethorphan 10 ml Q4H PRN 06/10/25 20:00 07/10/25 19:59 Zolpidem Tartrate 5 mg HS 06/10/25 21:00 07/10/25 20:59 06/11/25 21:39 Ondansetron HCl 4 mg Q6H PRN 06/10/25 20:00 07/10/25 19:59 Acetaminophen 650 mg Q6H PRN 06/10/25 20:00 07/10/25 19:59 Acetaminophen 650 mg Q6H PRN 06/10/25 20:00 07/10/25 19:59 Sodium Chloride 1,000 ml @ 80 mls/hr [id number] 06/10/25 20:00 07/10/25 19:59 06/11/25 08:30 Insulin Human Regular INSULIN SLIDING SCAL... ACHS 06/10/25 21:00 07/10/25 20:59 06/11/25 18:29 Budesonide 0.5 mg BIDRESP 06/11/25 06:00 07/11/25 05:59 06/11/25 19:21 Acetylcysteine 400mg = 2ml [id number] 06/11/25 00:00 07/11/25 00:00 06/11/25 23:11 Albuterol Sulfate 2.5MG [id number] 06/11/25 18:00 07/10/25 21:59 06/11/25 23:10 Ipratropium [place] 0.5 MG [id number] 06/11/25 18:00 07/10/25 21:59 06/11/25 23:10 PROBLEM LIST: (1) Asthma exacerbation ICD Code: J45.901 - Unspecified asthma with (acute) exacerbation (2) Rheumatoid Arthritis (3) Pneumonia, organism unspecified ICD Code: J18.9 - Pneumonia, organism unspecified PLAN: Empiric antibiotics IV steroids bronchodilators consult Pulmonary Resume home medication XIOMY SALAZAR MD Jun 12, 2025 05:31
[2025-06-12 06:48] LABS: ABG BASE EXCESS 0.9 mmol/L (-2.0-3.0); ABG HCO3 24.5 mmol/L (21.0-28.0); ABG OXYGEN SATURATION 96.2 % (94.0-98.0); ABG PCO2 36 mmHg (35-48); ABG PH 7.449 (7.350-7.450); PO2, ARTERIAL BG 78.7 mmHg (83.0-108.0); TEMPERATURE, CELSIUS BG 37.0 CELSIUS (35.5-37.0); VENT MODE, BG RA (ROOM AIR)
--- NOTE | 2025-06-12 11:14 | PN ---
[facility] PROGRESS NOTE Date Patient Seen: Jun 12, 2025 Time of Visit: 11:11 Supervising Physician: [Dr Ann Consulting Physician: Dr Lancaster Outpatient Specialists: [ ] Inpatient Consults: [facility] pulmonology PROBLEM LIST: Acute hypoxic respiratory failure, POA -resolved COPD/asthma exacerbation, POA- resolved Chronic bronchitis, POA - stable Hypertension, POA DM type 2, POA History of PVD s/p right BKA INTERVAL HISTORY: 69-year-old male with past medical history of DM type 2, hypertension, hyperlipidemia, PVD s/p right BKA, COPD/asthma/chronic bronchitis who presented to ED with complaint of worsening shortness of breaths, and greenish phlegm and found to have acute hypoxic respiratory failure, and COPD/asthma exacerbation. Patient was seen and examined in ED with no relatives present at bedside. Apparently he has been having issues with cough, phlegm, and shortness of breaths for the past six days, cc PCP multiple times with no significant improvement, also using albuterol almost every day with no improvement. Patient was then advised to come to ED for further medical evaluation. In ED stat chest x-ray was done showed no acute infiltrates or consolidation, his chemistry showed no acute electrolyte or kidney dysfunction, CBC unrevealing for any acute anemia or infection. On examination there is diffuse wheezing on bilateral lung garcia, with some distress. Patient was subsequently started on neb treatment, antibiotic therapy, and IV steroid. [facility] pulmonology was consulted for evaluation of acute hypoxic respiratory failure. 06/11 - patient is seen and evaluated at the bedside. Patient is sitting up in bed appears to be weak and deconditioned. Patient has been weaned off O2 and currently on room air and reports respiratory status improved significantly in comparison to yesterday. Patient does continue with the minimal wheezing on bilateral lungs via auscultation. Patient does report minimal dyspnea with the exertion. Patient to continue on current antibiotic treatment. Patient to continue with the Mucomyst, Pulmicort, and DuoNebs. Patient to continue with a short course of high-dose steroids and we will begin tapering in a.m.. Patient had a CT scan chest shows atelectasis with few fibrotic strands in the right middle lobe, inferior lingula and bilateral lower lobes. We will continue current treatment plan for now. We will continue to follow with you. 06/12 - patient is seen sitting up in a chair with no signs of acute distress. Patient is awake alert and oriented x3. Patient remains on room air and denies chest discomfort, chest pain or dyspnea went ambulation. No recurrent wheezing noted on exam. No acute changes reported overnight. Patient is hemodynamically stable. O2 signs are stable. Labs are within normal limits. Patient maybe discharged home with a oral prednisone and antibiotics. Patient has been advised to follow up in pulmonary clinic one week post discharge. We will sign off at this time. PLAN SUMMARY: Supplemental oxygen as needed Patient currently on room air IS while awake Continue DuoNebs Continue Pulmicort Doxycycline x1 week Prednisone 40 mg daily x7 days Patient follow up with Pulmonary clinic two weeks post discharge Patient maybe discharged home from pulmonary standpoint We will sign off at this time. REVIEW OF SYSTEMS: 12 point ROS reviewed with patient. Pertinent positives mentioned above. Otherwise negative. PHYSICAL EXAM: GENERAL: alert, weak, awake oriented x 3 HEENT: EOMI, Sclera non icteric, moist mucosa NECK: Supple, no JVD, trachea midline LUNGS: Scattered wheezing bilaterally HEART: Regular rate and rhythm. Normal S1 and S2, without murmurs ABD: Abdomen soft, nontender. Bowel sounds present EXT: No clubbing cyanosis or edema NEURO: Alert and oriented to person, follows commands Vital Signs (last 8hr) Date Time Temp Pulse Resp B/P (MAP) Pulse Ox O2 Delivery O2 Flow Rate FiO2 06/12/25 11:09 64 20 N/A Room Air 21 06/12/25 08:59 97.9 68 18 143/71 99 Room Air 06/12/25 06:43 60 20 N/A Room Air 21 06/12/25 06:41 60 20 06/12/25 03:51 98.1 72 18 113/54 95 Room Air LABS: Hematology Labs: Test 06/11/25 05:55 06/10/25 12:40 Range/Units White Blood Count 7.0 # 4.8-10.8 K/uL Red Blood Count 4.37 L 4.50-6.20 MIL/uL Hemoglobin 13.4 L 14.0-18.0 g/dL Hematocrit 39.4 L 42-54 % Mean Corpuscular Volume 90.2 79-99 fL Mean Corpuscular Hemoglobin 30.7 27.0-33.0 pg Mean Corpuscular Hemoglobin Concent 34.0 32.0-36.0 g/dL Red Cell Distribution Width 13.8 11.0-15.5 % Platelet Count 171 130-400 K/uL Mean Platelet Volume 8.2 7.5-10.5 fL Nucleated Red Blood Cells 0.0 0.0-0.19 % Erythrocyte Sedimentation Rate 6 0-20 MM/HR Chemistry Labs: Test 06/11/25 18:07 06/11/25 05:55 06/10/25 12:40 Range/Units Whole Blood Glucose 184 #H 70-110 MG/DL Sodium Level 141 136-145 mmol/L Potassium Level 4.0 3.5-5.1 mmol/L Chloride Level 105 101-111 mmol/L Carbon Dioxide Level 28 21-32 mmol/L Blood Urea Nitrogen 13 7-18 mg/dL Creatinine 1.0 0.5-1.3 mg/dL Glomerular Filtration Rate Calc 82 >90 mL/min Random Glucose 177 #H 70-105 mg/dL Total Calcium 8.0 L 8.5-10.1 mg/dL Total Bilirubin 0.3 # 0.2-1.0 mg/dL Aspartate Amino Transf (AST/SGOT) 14 10-37 U/L Alanine Aminotransferase (ALT/SGPT) 18 12-78 U/L Alkaline Phosphatase 68 50-136 U/L Total Protein 5.6 L 6.0-8.3 g/dL Albumin 3.1 L 3.5-5.0 g/dL Lactic Acid Level 1.5 0.8-2.5 mmol/L Total Creatine Kinase 46 # 21-232 U/L Troponin I High Sensitivity 9.7 4-75 ng/L C-Reactive Protein, Quantitative 1.70 0.5-3.0 mg/L DIAGNOSTICS / RADIOLOGY RESULTS: [ ] PLAN NEURO: Minimize central acting medications as possible. Maintain fall precautions, adequate lighting during the day PULMONARY: Supplemental 02 as needed. Maintain aspiration precautions at all times CARDIOVASCULAR: Follow hemodynamics. Vital signs per facility protocol GI & NUTRITION: Continue with nutritional support. Continue stool softeners and laxatives as needed. KIDNEYS & ELECTROLYTES: Strict monitoring of intake, output and overall fluid balance. Avoid nephrotoxic medications to the extent possible. Medications to be dosed according to renal function. Monitor electrolytes and replace as needed ENDOCRINE: Maintain blood glucose between 100-180 at all times. Hypoglycemia protocol in place INFECTIOUS DISEASE: Trend temperature, WBC and procalcitonin level Follow cultures, deescalate antibiotics as soon as possible. Panculture if new onset fever ONCOLOGY/HEMATOLOGY/COAGULATION: Monitor for s/s of bleeding Monitor hemoglobin, coagulation studies as needed SKIN: Pressure ulcer prevention per facility protocol Specialty mattress ORTHO/REHAB: Continue PT/OT Prophylaxis: Continue GI and DVT prophylaxis Code Status: Full Resuscitation Disposition: As per attending ATTESTATION BY PHYSICIAN I attest that I reviewed and discussed the case with the Physician Supervisor [employer] as well as agree with the Physician Supervisor [employer]'s findings, plans of care, and documentation above. Jf Webb MD,JIGNESH N [facility] Jun 12, 2025 11:14
[2025-06-12] MEDS ORDERED: PRED20B PO (11:15)
[2025-06-12] MEDS ORDERED: DOXY100C5 PO (11:15)
--- NOTE | 2025-06-12 14:49 | NUR ---
C SL REMOVAL CATH INTACT TOLL WELL DRESSING TO REMOVAL SITE DC ORDERS GIVEN DC VERBAL UNDERSTANDING DC PAPERS SIGNED ESCORTED OFF UNIT VIA WC TO FRONT OF HOSPITAL DC HM STABLE COND
--- NOTE | 2025-06-13 07:54 | HMCIMG ---
EXAM: CR Chest, 1 View. CLINICAL HISTORY: resp failure COMPARISON: CR and CT chest dated 06/10/2025 FINDINGS: LUNGS: The lungs show no infiltrate or other acute finding. Mild bibasilar atelectasis. PLEURAL SPACES: No pleural effusion or pneumothorax. MEDIASTINUM: The cardiomediastinal silhouette is within normal limits. BONES: No aggressive appearing osseous lesion seen. IMPRESSION: No acute cardiopulmonary pathology is evident. No adverse interval changes. /[place]
== END 2025-06-12 14:45 | disposition home or self-care (01) ==
LOC: EDH 12:10 → EDHIP 12:11 → 4BH 06-11 00:45
PROVIDERS: ADMIT Internal Medicine; ATTEND Internal Medicine
DX: J45.901 Unspecified asthma with (acute) exacerbation (principal); J18.9 Pneumonia, unspecified organism; M06.9 Rheumatoid arthritis, unspecified; J96.01 Acute respiratory failure with hypoxia; E11.51 Type 2 diabetes mellitus with diabetic peripheral angiopathy without gangrene; E78.5 Hyperlipidemia, unspecified; I10 Essential (primary) hypertension; I25.10 Atherosclerotic heart disease of native coronary artery without angina pectoris; E66.9 Obesity, unspecified; K59.00 Constipation, unspecified; Z89.511 Acquired absence of right leg below knee; Z68.21 Body mass index [BMI] 21.0-21.9, adult; Z79.899 Other long term (current) drug therapy; Z98.890 Other specified postprocedural states; Z20.822 Contact with and (suspected) exposure to COVID-19
CPT/HCPCS: 96376 ×2; 96365; 96375; 82550; 84484; 80053 ×2; 85027 ×2; 85651; 87040 ×2; 87804 ×2; 82948 ×2; 83605; 86140; 36415 ×2; 87635; 71046; 74160; 71260; 93005; 94640; 96361 ×2; 96366; 96367; 82803; 71045; 36600; G0378 ×50; G0379; J2919 ×3; J0696 ×2; J0456 ×2; Q9967; J1815; 94664